=== PATIENT | male | born 1980 | race Caucasian/White ===

== ENCOUNTER → 2023-10-19 | Day surgery (SDC) | payer BC ==
[~2023-10-19] VITALS: Ht 180.3 cm; Wt 97.5 kg
[~2023-10-19] MED LIST: LISINOPRIL10 M1 PO; Lactated Ringer's Solution 1,000 ML IV ONE; Lidocaine Hydrochloride 2% 5 ML SDV IM ONE; METFORMIN HYDR500 MG PO; OZEMPIC0.25 MG/03 SQ; PROPOFOL 200 MG/20 ML VIAL IV ONE
[2023-10-19 09:10] VITALS: BP 111/72
[2023-10-19 10:50] VITALS: BP 96/58
[2023-10-19 11:05] VITALS: BP 104/66
[2023-10-19 11:20] VITALS: BP 114/78
== END | disposition home or self-care (01) ==
LOC: SDC 10-15 10:15
PROVIDERS: ATTEND Surgery
DX: Z12.11 Encounter for screening for malignant neoplasm of colon (principal); K57.32 Diverticulitis of large intestine without perforation or abscess without bleeding; I10 Essential (primary) hypertension; E11.9 Type 2 diabetes mellitus without complications; Z98.890 Other specified postprocedural states; Z79.84 Long term (current) use of oral hypoglycemic drugs; Z79.899 Other long term (current) drug therapy